=== PATIENT | male | born 1955 | race Caucasian/White ===

== ENCOUNTER 2019-02-07 10:59 | Outpatient (CLI) | payer BC, SELFPAY ==
--- NOTE | 2019-02-07 10:58 | DI.RAD_ITS ---
SYMPTOM/DIAGNOSIS: RT SHOULDER PAIN M25.511 RIGHT SHOULDER: 02/07 Five views were obtained. There are very prominent hypertrophic changes at the acromioclavicular joint. Glenohumeral articulation appears intact. No other significant bony abnormalities seen. No soft tissue calcifications seen. CONCLUSION: Hypertrophic DJD of the A-C joint.
[2019-02-08 09:18] LABS: PSA, Screening 4.7 ng/ml (0-4.5)
== END 2019-02-07 11:19 ==
PROVIDERS: PCP Family Medicine; Visit Provider Family Medicine
DX: M25.511 Pain in right shoulder (principal); Z00.00 Encounter for general adult medical examination without abnormal findings; Z12.5 Encounter for screening for malignant neoplasm of prostate; M19.011 Primary osteoarthritis, right shoulder
CPT/HCPCS: 36415; 84153; 73030

== ENCOUNTER 2019-11-04 13:41 | Outpatient (CLI) | payer BC, SELFPAY ==
[2019-11-05 09:45] LABS: PSA, Screening 3.2 ng/mL (0.0-4.5)
== END 2019-11-04 14:01 ==
PROVIDERS: PCP Family Medicine; Visit Provider Nurse Practitioner Gerontology
DX: Z12.5 Encounter for screening for malignant neoplasm of prostate (principal); Z80.42 Family history of malignant neoplasm of prostate
CPT/HCPCS: 36415; 84153

== ENCOUNTER 2020-11-30 10:11 | Outpatient (REF) | payer BC, SELFPAY ==
[2020-11-30 17:04] LABS: PSA, Screening 3.7 ng/mL (0.0-4.5)
== END 2020-11-30 10:12 | disposition home or self-care (01) ==
LOC: NCHCN 10:11
PROVIDERS: PCP Family Medicine; Visit Provider Nurse Practitioner Gerontology
DX: Z12.5 Encounter for screening for malignant neoplasm of prostate (principal); Z80.42 Family history of malignant neoplasm of prostate
CPT/HCPCS: 84153

== ENCOUNTER 2021-08-16 02:35 | Outpatient (CLI) | payer BC, SELFPAY ==
[2021-08-16 07:46] LABS: MCH 29.2 pg (27.0-33.0); MCHC 31.7 % (32.0-36.0); MCV 92.1 fL (80-95); MPV 8.7 fL (8.0-11.0); Platelet Count 196 10^3/uL (130-400); RBC 4.45 10^6/uL (4.36-5.78); RDW 12.4 % (11.8-14.1); RDW-SD 42.1 fL; WBC 4.83 10^3/uL (4.4-10.8)
[2021-08-16 09:06] LABS: ALT 32 U/L (16-63); AST 28 U/L (15-37); Albumin 3.7 g/dL (3.4-5.0); Alkaline Phosphatase 50 U/L (46-116); Anion Gap 5.9 mmol/L (3-11); BUN 16 mg/dL (7-18); Bilirubin, Total 0.3 mg/dL (0.2-1.0); CO2 32.1 mmol/L (21.0-32.0); CREATININE 0.7 mg/dL (0.70-1.30); Calcium 8.8 mg/dL (8.5-10.1); Chloride 108 mmol/L (98-107); Glucose 104 mg/dL (74-106); Potassium 4.1 mmol/L (3.5-5.1); Sodium 146 mmol/L (136-145); TSH (W/Ref FT4) 1.29 uIU/mL (0.36-3.74); Total Protein 6.7 g/dL (6.4-8.2)
[2021-08-16 14:36] LABS: Iron 49 ug/dL (65-175); Total Iron Binding Capacity 326 ug/dL (250-450); Transferrin Sat 15 % (20-55)
[2021-08-16 15:04] LABS: Ferritin 20 ng/mL (26-388); Vitamin B12 570 pg/mL (193-986)
[2021-08-16 15:05] LABS: Folate > 20.0 ng/mL (8.6-20.0)
[2021-08-16 18:33] LABS: PSA, Diagnostic 4.6 ng/mL (0.0-4.5)
== END 2021-08-16 02:36 | disposition home or self-care (01) ==
LOC: LBO 02:35
PROVIDERS: Surgery; PCP Family Medicine; Visit Provider Family Medicine
DX: D64.9 Anemia, unspecified (principal); R63.4 Abnormal weight loss; R97.20 Elevated prostate specific antigen [PSA]; D12.6 Benign neoplasm of colon, unspecified; G47.30 Sleep apnea, unspecified; K57.30 Diverticulosis of large intestine without perforation or abscess without bleeding; R10.9 Unspecified abdominal pain
CPT/HCPCS: 36415; 80053; 85027; 82607; 82728; 82746; 83540; 83550; 84153; 84443

== ENCOUNTER 2021-08-17 11:34 | Outpatient (CLI) | payer BC, SELFPAY ==
--- NOTE | 2021-08-17 14:15 | RT.EKG_ITS ---
APPROVED REPORT Exam: Resting ECG Reason for Exam: preOp Patient Location: O HR:84 bpm ECG Measurements Heart Rate 84 AXIS VA 169 P 73 QRSd 115 QRS 43 QT 350 T 63 QTc 414 Conclusion Sinus rhythm...normal P axis, V-rate 60- 99 Incomplete right bundle branch block...QRSd >112, terminal axis(90,270)
== END 2021-08-17 11:35 | disposition home or self-care (01) ==
LOC: RT 11:35
PROVIDERS: PCP Family Medicine; Visit Provider Surgery
DX: Z87.891 Personal history of nicotine dependence (principal); R63.4 Abnormal weight loss; Z82.49 Family history of ischemic heart disease and other diseases of the circulatory system; Z01.810 Encounter for preprocedural cardiovascular examination; I45.19 Other right bundle-branch block; D64.9 Anemia, unspecified; Z86.010 Personal history of colon polyps; G47.33 Obstructive sleep apnea (adult) (pediatric); K57.30 Diverticulosis of large intestine without perforation or abscess without bleeding; R10.9 Unspecified abdominal pain; R97.20 Elevated prostate specific antigen [PSA]
CPT/HCPCS: 93005; 93010

== ENCOUNTER 2021-08-20 01:21 | Outpatient (CLI) | payer BC, SELFPAY ==
--- NOTE | 2021-08-20 08:21 | DI.RAD_ITS ---
Exam(s) XR CHEST 2V PA LATERAL EXAM: XR CHEST 2V PA LATERAL CLINICAL HISTORY: wtloss/hx of smoking,R53.4,Z87.891 TECHNIQUE: 2D digital imaging was performed of the chest. Three images were obtained. PA and later al views were obtained. COMPARISON: CR,RF BARIUM SWALLOW W PA LAT CXR from 01/02/2012 CR XR shoulder RT complete 2+V from 02/07/2019 FINDINGS: MEDIASTINUM: Normal. HEART: Normal. PULMONARY VASCULATURE: Normal. LUNGS: Clear. PLEURAL SPACE: No pleural effusion or pneumothorax. BONE:Within normal limits for the patient's age. There is a pectus excavatum deformity. OTHER FINDINGS:Normal. IMPRESSION: No acute pulmonary findings. DATA REPOSITORY: RADIATION DOSE DELIVERED:
== END 2021-08-20 01:41 ==
PROVIDERS: PCP Family Medicine; Visit Provider Surgery
DX: R63.4 Abnormal weight loss (principal); Z87.891 Personal history of nicotine dependence
CPT/HCPCS: 71046

== ENCOUNTER 2021-09-03 01:57 | Outpatient (CLI) | payer BC, SELFPAY ==
[2021-09-03 07:43] LABS: HCT 41.6 % (40.0-50.0); HGB 13.3 g/dL (13.5-17.5); MCH 29.5 pg (27.0-33.0); MCV 92.2 fL (80-95); MPV 8.7 fL (8.0-11.0); Platelet Count 192 10^3/uL (130-400); RBC 4.51 10^6/uL (4.36-5.78); RDW 12.2 % (11.8-14.1); RDW-SD 41.5 fL; WBC 5.34 10^3/uL (4.4-10.8)
[2021-09-03 09:06] LABS: Anion Gap 5.6 mmol/L (3-11); BUN 18 mg/dL (7-18); CO2 31.4 mmol/L (21.0-32.0); CREATININE 0.8 mg/dL (0.70-1.30); Calcium 8.6 mg/dL (8.5-10.1); Chloride 105 mmol/L (98-107); Ferritin 24 ng/mL (26-388); Glucose 99 mg/dL (74-106); Potassium 3.8 mmol/L (3.5-5.1); Sodium 142 mmol/L (136-145)
[2021-09-03 09:12] LABS: Iron 111 ug/dL (65-175)
[2021-09-08 09:45] LABS: IgA 310 mg/dL (85-499); Interpretation (See Note); Tissue Transglutaminase IgA <1.2 U/mL (<4.0)
== END 2021-09-03 01:58 | disposition home or self-care (01) ==
LOC: LBO 01:58
PROVIDERS: PCP Family Medicine; Visit Provider Family Medicine
DX: D64.9 Anemia, unspecified (principal); R63.4 Abnormal weight loss; R97.20 Elevated prostate specific antigen [PSA]
CPT/HCPCS: 36415; 80048; 82784; 83516; 85027; 82728; 83540; 84154

== ENCOUNTER 2021-09-20 13:30 | Outpatient (REF) | payer BC, SELFPAY ==
--- NOTE | 2021-09-20 10:00 | SKI_PTH ---
PATIENT: Randy Cuevas LOC: N U#:[id number] AGE/SX: 66/M ROOM: RE09/20/[address]: Mariella Chandler MD, DC : 1955 BED: DIS: 09/20/2021 SPEC #: [id number] RECD: 09/20/21 18:07 STATUS: TAMIKO REStephanie #: [id number] [place]: 09/20/21 10:[address]: Mariella Chandler DEPT: Surgical Specimen RECD BY: Lacey Nichole Tissues: 1 - SKIN BIOPSY(SHAVE/PUNCH) Procedures: IMMUNOPEROXIDASE STAIN SKIN LEVEL 4 Comments: [id number]
== END 2021-09-20 13:31 | disposition home or self-care (01) ==
LOC: LBN 13:30
PROVIDERS: PCP Family Medicine; Visit Provider Family Medicine
DX: C43.59 Malignant melanoma of other part of trunk (principal)
CPT/HCPCS: 88305; 88361

== ENCOUNTER 2021-10-13 01:19 | Outpatient (CLI) | payer BC, SELFPAY ==
[2021-10-13 12:05] LABS: Source Nasal/Nares
[2021-10-13 14:31] LABS: COVID-19 PCR Negative (Negative)
== END 2021-10-13 01:20 | disposition home or self-care (01) ==
LOC: LBO 01:19
PROVIDERS: PCP Family Medicine; Visit Provider Surgery
DX: Z20.822 Contact with and (suspected) exposure to COVID-19 (principal)
CPT/HCPCS: 87635

== ENCOUNTER 2021-10-15 12:21 | Day surgery (SDC) | payer BC, SELFPAY ==
--- NOTE | 2021-10-14 09:47 | HPE_ITS ---
Date of service: 10/14/21 Time of Service: 09:47 Assessment and Plan Assessment and plan (1) Elevated PSA: Status: Acute (2) Family history of coronary artery disease: Status: Acute (3) Former smoker: Status: Acute (4) Weight loss: Status: Acute (5) Diverticulosis of colon without diverticulitis: Status: Acute (6) Sleep apnea: Status: Acute (7) Tubular adenoma of colon: Status: Acute Assessment and plan: Plan:Colonscopy w/ MAC The?patient will be scheduled by my office. ? The pt understands that they need to do a bowel prep and the importance of hydration during this.? The patient understands there is a theoretical risk of renal failure.? For healthy patients we use Gatorade/Miralax Prep.? ?For anyone with renal concerns- GoLytely will be used. ? Plavix and coumadin will need to be held except in unusual circumstances. ? Patients in A. Fib do not need to be bridged with Lovenox or on CVA prophylaxis.? A baby ASA can be continued but full dose ASA needs to be stopped for 10 days prior to the procedure. ? A complete H & P is required within 30 days of the procedure.? GETA w/out airway is used for anesthesia, w/ associated risks. Colonoscopy does not require antibiotics prophylaxis, except as noted below. ?Informed consent is obtained for the procedural (explained in simple layman's terms that?the pt and/or family could understand) explaining risks vs benefits and alternatives to the procedure and consequences if we do not do the procedure and need/rational for the procedure. Risks include but are not limited to: bleeding, infection, perforation of colon.? This would necessitate emergency surgery to repair the damage w/ possible ostomy; and other associated complications w/ the required surgery. ? Also complications of anesthesia including aspiration, OH/CVA/.I discussed with the?patient would they could expect during the procedure, post procedure and recovery time and risks (8) Sleep apnea: (9) Peripheral neuropathy: (10) Hiatal hernia: Status: Chronic (11) Anemia: Status: Acute (12) Heme + stool: Status: Acute History of Present Illness Narrative: pt notes he has been feeling tired for the past 8wks. ? desnies CP/SOB. ? See labs in [facility]. quit smoking yrs ago. 1ppd for 10 yrs ? + wt loss. ? pt states he is eating ok.? 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 He denies any abdominal pain.? He denies any pain or difficulty swallowing.? He denies any reflux signs or symptoms.? He states he has been eating normally. mother- pancreatic dad- prostate brother- skin younger brother- prostate he does not use CPAP no problems w/ aesthesis in the past.? repeat hemoccult cards were negative. He is still anemic. Pt seen at the request of PCP regarding rectal bleeding/anemia.? Denies problems with constipation, diarrhea.? No pain or difficulty with bowel movements. ? There is no family history of any colon cancer.? Pt has not had any weight loss.? Their appetite is good.? No heart, lung, or kidney problems. No heartburn or indigestion. No prior colo-rectal surgery.? No prior prostatesurgery. ? CE 03/29 After informed consent was obtained, the patient was taken to the endoscopy suite, placed in the left decubitus position. ? Monitors were applied and a time-out was done.? The patient was then given Versed and fentanyl in increments and once asleep and comfortable, the scope was introduced and retroflexed, no internal hemorrhoids were noted. The scope was straightened and advanced to the cecum without difficulty.? The terminal ileum and appendiceal orifice were identified. ? The scope was then slowly retracted back into the ascending colon where a small benign appearing polyp was identified and removed with forceps. The scope was then slowly retracted all the way back into the rectum. The patient also had some mild right-sided diverticulosis. The scope was removed and the patient was woken up and taken back to [facility] in stable condition. He did complete the bowel prep. It is resulted as []. He is not having any abdominal pain or nausea at this time. He currently is not having any chest pain or shortness of breath. He has no productive cough or fevers. He was Covid negative. He has had no changes in his health status or medication. All questions are answered to his satisfaction he is stable for the proposed procedure today. He does have a history of diverticulosis and adenoma of the colon Review of Systems All systems reviewed & are unremarkable except as noted in HPI and below PFSH All Active Problems (Updated 10/15/21 @ 12:50 by Mimi Meeks DO) Heme + stool (Acute) Hiatal hernia (Chronic) Elevated PSA (Acute) Family history of coronary artery disease (Acute) Former smoker (Acute) Weight loss (Acute) Chronic right shoulder pain (Acute) Left shoulder pain (Acute) Shoulder pain (Acute) Annual physical exam (Acute) Abdominal pain (Acute) Acute meniscal tear, lateral (Acute 01/26/09) Anemia (Acute 06/25/12) Carpal tunnel syndrome on both sides (Acute 11/20/14) MILD Cervical spine arthritis (Acute 10/13/14) severe by MRI. No myelopathy Closed fracture of left lower extremity with routine healing (Acute 06/08/15) Diverticulosis of colon without diverticulitis (Acute 03/13/06) 03/19 COLONOSCOPY: TRANSVERSE DIVERTICULI Hiatal hernia Herpes simplex (Acute) Insomnia (Acute) Lumbosacral spondylosis (Acute) LOWER BACK PAIN FOR YEARS; X-RAYS: B/L L2 SPONDYOLYSIS W/ RETROLISTHESIS OF L2 ON L3, DDD L2-3, L4-5, L5-S1 & DJD FACETS. Magnidottir recommended against surgery Peripheral neuropathy (Acute 09/30/14) Rosacea (Acute) Sleep apnea (Acute) positional/no CPAP Tubular adenoma (Acute) Weight loss (Acute 11/07/16) Tubular adenoma of colon (Acute 04/08/16) Medical History (Updated 10/15/21 @ 12:50 by Mimi Meeks DO) Acute meniscal tear, lateral Carpal tunnel syndrome on both sides Cervical spine arthritis Diverticulosis of colon without diverticulitis Elevated PSA Insomnia Lumbosacral spondylosis Peripheral neuropathy Rosacea Sleep apnea Surgical History Arthroplasty of knee (~11/2001) Colonoscopy - IV Sedation (04/04/16) Family History (Updated 02/11/20 @ 13:10 by Mariella Calderon) Mother , 75 Heart disease A-FIB Pancreatic cancer Father , 68 Prostate cancer Brother , 65 Heart disease a-fib Stroke Brother Skin cancer Brother No problems noted. Paternal Grandfather , 74 Heart disease Stroke Paternal Grandmother Cervical cancer Daughter Depression Social History (Updated 08/02/21 @ 14:23 by Aviva Marin-Lescault) Smoking/Tobacco Use Status: Former Tobacco Use tobacco type: cigarettes Quit Date: 08/14/86 Tobacco: How many years used: 10 Second Hand Exposure: Yes Smoking risk assessment performed?: Yes Alcohol Intake: former Drug use: Socially Substance use type: marijuana Caregiver/Support person: No Household members: spouse Housing: house Communication Needs: Corrective Lenses Do you need help understanding health information?: Rarely Pets and animals: Yes Pets and animals: dog(s) Sexually active: No Do you think of yourself as: straight/heterosexual Current gender identity: male What is your relationship status?: How often do you talk on the phone with friends or family?: once per week How often do you get together with friends or relatives?: once per week How often do you attend holiness or spiritism services?: decline to answer Do you belong to any clubs or organized social groups?: no Panel score (0-1 are the most socially isolated patients): 1 Duration: 45-60 minutes/day Frequency: 5-6 times per week Carla/Zoroastrianism: Voodoo Special carla needs: No Seatbelt use: always Helmet use: Yes Drive intox or ride w/intox driver retraining instructor: No Do you feel safe at home: Yes Do you feel safe in your relationship?: Yes Meds Allergies and Home Medications Allergies Allergy/AdvReac Type Severity Reaction Status Date / Time No Known Allergies Allergy Unverified 10/15/21 12:27 Home Medications Medication Instructions Recorded Confirmed Type jackson constantino 160 mg capsule 160 mg PO DAILY cap 11/11/19 10/15/21 History bisacodyl 5 mg tablet,delayed 5 mg PO ONCE #4 tab 08/16/21 10/15/21 Rx release (Dulcolax (bisacodyl)) methylsulfonylmethane 1,000 mg 1,000 mg PO DAILY cap 08/16/21 10/15/21 History capsule (MSM) multivitamin 1 tab PO DAILY 08/16/21 10/15/21 History polyethylene glycol 3350 17 238 g PO ONCE #238 g 08/16/21 10/15/21 Rx gram/dose oral powder ferrous sulfate 325 mg (65 mg 325 mg PO DAILY 08/30/21 10/15/21 History iron) tablet magnesium oxide 250 mg PO DAILY 08/30/21 10/15/21 History vitamin E 400 unit capsule 400 unit PO DAILY 08/30/21 10/15/21 History Exam Narrative Exam Narrative: PHYSICAL EXAM GENERAL APPEARANCE: Alert, healthy appearance, oriented, in no acute distress HEAD, EYES, EARS, NECK, THROAT: Head is normocephalic, pupils equal, round, reactive to light and accommodation, ocular movement intact, sclera clear and no jaundice. ?Dentition intact. No sore throat.? No jaw pain. NECK: Supple, Trachea midline. No JVD. LUNGS: normal respiration/nl chest excursion. ?Clear to auscultation B/l no R/R/W ?HEART: Regular rate and rhythm, EXTREMITY: No edema or cyanosis? no leg pain, redness, swelling.? changes consistent w/ OA ABDOMEN: non tender to palpation, no masses or distention, no hernias. Normal bowel sounds NEURO: no focal neuro deficits. ?
--- NOTE | 2021-10-15 06:37 | W.ANESPRE ---
General Info Date of Service Date Performed: 10/15/21 Height: 6 ft Weight: 70.08 kg Body Mass Index (BMI): 20.9 Surgical Procedure: Operation Date: 10/15/21 12:05 Proposed Procedure Side Surgeon tree Meeks, Meds Allergies and Home Medications Allergies Allergy/AdvReac Type Severity Reaction Status Date / Time No Known Allergies Allergy Unverified 10/15/21 12:27 Home Medication Medication Instructions Recorded saw palmetto 160 mg capsule 160 mg PO DAILY cap 11/11/19 bisacodyl 5 mg tablet,delayed 5 mg PO ONCE #4 tab 08/16/21 release (Dulcolax (bisacodyl)) methylsulfonylmethane 1,000 mg 1,000 mg PO DAILY cap 08/16/21 capsule (MSM) multivitamin 1 tab PO DAILY 08/16/21 polyethylene glycol 3350 17 238 g PO ONCE #238 g 08/16/21 gram/dose oral powder ferrous sulfate 325 mg (65 mg 325 mg PO DAILY 08/30/21 iron) tablet magnesium oxide 250 mg PO DAILY 08/30/21 vitamin E 400 unit capsule 400 unit PO DAILY 08/30/21 Current Visit Medications: Current Medications Generic Name Dose Route Start Last Admin Trade Name Freq PRN Reason Stop Dose Admin Hyoscyamine Sulfate 0.125 mg 10/14/21 09:52 Hyoscyamine 0.125 Mg Sl/Oral/Chew SL DIRECTED PRN Ringer's Solution 1,000 mls @ 80 mls/hr 10/15/21 06:00 IV 11/11/21 23:59 INFUSION [facility] IV Miscellaneous Supplies 1 each 10/15/21 06:00 Iv Access IV 11/11/21 23:59 DIRECTED [facility] Ondansetron HCl 4 mg 10/14/21 09:52 Ondansetron 4 Mg/2 Ml Vial IVP Q4H PRN PRN Nausea / Vomiting Sodium Chloride 0 ml 10/15/21 06:00 Normal Saline Flush 10 Ml Syr IV 11/11/21 23:59 PRN PRN Sodium Chloride 0 ml 10/15/21 06:00 Normal Saline 10 Ml Vial IJ 11/11/21 23:59 DIRECTED PRN Sterile Water 0 ml 10/15/21 06:00 Water,Injection,Sterile 10 Ml Vial IJ 11/11/21 23:59 DIRECTED PRN PFSH Active Problems Active Problems: Problem Status Onset Code Hiatal hernia K44.9 Elevated PSA R97.20 Family history of coronary artery disease Z82.49 Former smoker Z87.891 Weight loss R63.4 Chronic right shoulder pain M25.511, G89.29 Left shoulder pain M25.512 Shoulder pain M25.519 Annual physical exam Z00.00 Abdominal pain R10.9 Acute meniscal tear, lateral 01/26/09 S83.289A Anemia 06/25/12 D64.9 Carpal tunnel syndrome on both sides 11/20/14 G56.03 Cervical spine arthritis 10/13/14 M47.812 Closed fracture of left lower extremity with routine healing 06/08/15 S82.92XD Diverticulosis of colon without diverticulitis 03/13/06 K57.30 Herpes simplex B00.9 Insomnia G47.00 Lumbosacral spondylosis M47.817 Peripheral neuropathy 09/30/14 G62.9 Rosacea L71.9 Sleep apnea G47.30 Tubular adenoma D36.9 Weight loss 11/07/16 R63.4 Tubular adenoma of colon 04/08/16 D12.6 Medical History Medical History (Updated 10/15/21 @ 12:50 by Mimi Meeks DO) Acute meniscal tear, lateral Carpal tunnel syndrome on both sides Cervical spine arthritis Diverticulosis of colon without diverticulitis Elevated PSA Insomnia Lumbosacral spondylosis Peripheral neuropathy Rosacea Sleep apnea Surgical History Surgical History Arthroplasty of knee (~11/2001) Colonoscopy - IV Sedation (04/04/16) Tobacco Smoking/Tobacco Use Status: Former Tobacco Use Passive smoking exposure: Yes Second hand exposure: Yes Alcohol Alcohol Intake: former Substance Use Substance use: Socially Substance use type: marijuana Vital Signs and Lab Results Vital Signs Most Recent Vital Signs in EMR: Temp Pulse Resp BP Pulse Ox 36.3 C L 88 18 132/91 H 98 10/15/21 12:35 10/15/21 12:35 10/15/21 12:35 10/15/21 12:35 10/15/21 12:35 Lab Results Blood Type / Crossmatch: No Data to Display Complete Blood Count: No Data to Display Complete Metabolic Panel: No Data to Display Liver Function Panel: No Data to Display Coagulation Panel: No Data to Display Cardiac Panel: No Data to Display Arterial Blood Gas: No Data to Display Venous Blood Gas: No Data to Display Pancreas Panel: No Data to Display Thyroid Panel: No Data to Display Infectious Disease: Coronavirus (COVID-19)(PCR) Negative (Negative) 10/13/21 10:00 10/13/21 Coronavirus 2019 Source Nasal/Nares 10/13/21 10:00 10/13/21 Blood Cultures: No Data to Display Toxicology Panel: No Data to Display Imaging and Studies Imaging and Studies Study information below may be from another EMR and interpreted by another provider. Please see original notes in EMR for more complete details. EKG Summary: 09/04: sinus, iRBBB. Stress Test Summary: 2011: negative for ischemia. Anesthesia Assessment and Plan Anesthesia History Personal History: No History of Anesthesia Complications Family History: No Family History of Anesthesia Complications Exercise Tolerance Exercise Tolerance: Metabolic Equivalents>4 Cardiac & Pulmonary Exam Cardiac Exam: Normal S1/S2 Heart Sounds Pulmonary Exam: Clear Bilateral Breath Sounds Implantable Cardiac Device Does patient have a Pacemaker or an ICD?: No Airway Exam Known Difficult Airway: No Mallampati Class: 2 Mouth Opening: Normal (> 3cm) Thyromental Distance: Greater than 3 cm Neck Range of Motion: Full ROM Neck Circumference: Normal Teeth Condition: Normal Dentition ASA Classification ASA Score: ASA 2 Emergency Case?: No NPO Status NPO Status: NPO Clears >2 hours, Solids >8 hours Anesthesia Plan Resuscitation Status: Full Code Anesthesia Technique: General Anesthesia Airway Planned: Natural Airway Monitors Used: Standard Monitors Preoperative Comments:: 66 yo male with rectal bleeding and anemia for colonoscopy. Sig PMHx: no major.
[2021-10-15 12:35] VITALS: BP 132/91; PULSE 88; RESP 18; TEMP 36.3; O2SAT 98
[2021-10-15 12:49] VITALS: BMI 20.9
[2021-10-15] MEDS: Lactated Ringers 1,000 ML 80 ML IV (12:53)
[2021-10-15 13:43] VITALS: BP 123/74; PULSE 68; RESP 16; TEMP 36.2; O2SAT 99
[2021-10-15 14:13] VITALS: BP 135/89; PULSE 68; RESP 18; TEMP 36.2; O2SAT 99
--- NOTE | 2021-10-15 14:14 | COLE_ITS ---
Colonoscopy Report Date of procedure: 10/15/21 Pre-op diagnosis general: hem+/anemia Post-op diagnosis procedure note: other (roach diverticula ) Surgeon: Mimi Meeks Anesthesia Type: General LMA/ETT Estimated blood loss (mL): 0 Pathology: none sent Complications: None Disposition: same day Prep: Miralax/Dulcolax Retraction Time: 8 Procedure Description: After informed consent was obtained the patient was taken to the procedure room and placed in a left decubitous position. Monitors were applied and a time out was done. The patients name, date of , procedure, allergies to medications and metal in their body was reviewed. The patient was then sedated. Once s edated and comfortable a rectal exam was done. External exam was normal. Internal exam revealed a normal sphincter tone and no palpable masses. The scope was then introduced and retrofelexed. No internal hemorrhoids were identified. The scope was then advanced to the cecum w/out difficulty. The TI and appendiceal orifice were identified. The prep was BBPS 2 in all segments (6). The scope was then slowly retracted over 8 minutes back into the rectum. There are no polyps or AVMs visualized today. He does have a few small scattered diverticula throughout the entire colon. There is no signs of active bleeding or infection today. the scope was removed and the patient was woken up and taken back to Same day surgery in stable condition. The patient tolerated the procedure well and there were no immediate complications. Follow up: The patient should follow up in 7years unless they develop changes in bowel habits or other new gastrointestinal complaints.
--- NOTE | 2021-10-15 14:15 | PDOC.DSDIS_ITS ---
Discharge Plan Disposition Patient Disposition: HOME Condition: Good Discharge Details Reason For Visit: colon scope Attending Provider: Mimi Meeks Primary Care Provider: Mariella Chandler Home Meds and New Rx's Prescriptions: Continued ferrous sulfate 325 mg (65 mg iron) tablet 325 mg PO DAILY 0RF magnesium oxide 250 mg magnesium tablet 250 mg PO DAILY 0RF vitamin E 400 unit capsule 400 unit PO DAILY 0RF saw palmetto 160 mg capsule 160 mg PO DAILY 0RF Rx Instructions: give with meal/snack multivitamin Tablet 1 tab PO DAILY 0RF MSM 1,000 mg capsule 1,000 mg PO DAILY 0RF Discontinued polyethylene glycol 3350 17 gram/dose powder 238 g PO ONCE Qty: 238 0RF Rx Instructions: take per colonoscopy instructions bisacodyl [Dulcolax (bisacodyl)] 5 mg tablet,delayed release (DR/EC) 5 mg PO ONCE Qty: 4 0RF Rx Instructions: take per colonoscopy instructions Discharge Instructions Additional Instructions: DSU Colonoscopy Post- Op Instructions Instructions for Everyone who is given Anesthesia: For your safety, please do the following for the next twenty-four (24) hours: *Do Not operate a motor vehicle (car, truck, motorcycle, etc.) *Do Not drink alcoholic beverages or use any recreational drugs for the first 24 hours or while taking pain medications. The medications in your body may have a reaction that can be dangerous. *Do Not make any important decisions or sign any important papers. Findings: divertiucla throughout the entire colon Follow up: W/ Dr. Bearden as previously scheduled 1. No lifting over 20 pounds or strenuous activity for the first 24 hours after your procedure. After 24 hours there are no restrictions on your activity but you may feel fatigued for a few days. 2. After you arrive home you may have a light meal and return to your normal diet as you can tolerate it without feeling sick to your stomach. 3. You may have a bloated, gaseous feeling in your belly (abdomen) after a colonoscopy. Passing gas and belching will help. Walking or lying down on your left side with your knees flexed may relieve the discomfort. Call the office at [phone] (Office) or [phone] (Hospital) right away if you notice any of the following: a.Vomiting of blood or ?coffee ground stools?. b.Rectal bleeding 1Tbsp, blood clots or continuous bleeding. c.Severe belly (abdominal) pain. d.A hard distended belly (abdomen) and an inability to pass gas. 4. Please don?t expect to have a normal BM (bowel movement) for 2-3 days after your procedure. 5. If there are questions regarding the findings of your procedure, please contact your doctor 6. If you are unable to contact your doctor with a problem, contact the hospital at [phone]. 7. Continue all your regular medications unless directed otherwise. I understand the above instructions and have no questions. Signature of Patient or Adult Escort Name of Responsible Adult Escort Signature of Nurse Date/Time Activity:: see above Diet:: see above Discharge Orders Discharge Orders: Discharge Order (Routine); Ordered 10/14/21 Ordered By: Mimi Meeks DS: Diagnosis Discharge Diagnosis (1) Elevated PSA: Status: Acute (2) Family history of coronary artery disease: Status: Acute (3) Former smoker: Status: Acute (4) Weight loss: Status: Acute (5) Diverticulosis of colon without diverticulitis: Status: Acute (6) Sleep apnea: Status: Acute (7) Tubular adenoma of colon: Status: Acute (8) Sleep apnea: (9) Peripheral neuropathy: (10) Hiatal hernia: Status: Chronic (11) Anemia: Status: Acute (12) Heme + stool: Status: Acute
--- NOTE | 2021-10-15 15:05 | W.ANESPOSTOP ---
Postoperative Evaluation Date, Time and Location Date Performed: 10/15/21 Time Performed: 15:05 Patient Location: Day Surgery Unit Vital Signs Most Recent Imported Vital Signs: Most Recent Vital Signs Temp Pulse Resp BP Pulse Ox 36.2 C L 68 16 123/74 99 10/15/21 13:43 10/15/21 13:43 10/15/21 13:43 10/15/21 13:43 10/15/21 13:43 Pain Score Most Recent Pain Score: Most Recent Pain Score Pain Level 0 10/15/21 13:43 Assessment Mental Status: Awake (Alert & Oriented to Patient Baseline) Airway and Respiratory Function: Patent airway with normal (patient baseline) respiratory exam Cardiovascular Function: Hemodynamically Stable Hydration Status: Adequately Hydrated Nausea & Vomiting: No Nausea or Vomiting Pain: Pt. Denies Any Pain Peripheral Nerve Block: Patient did not receive a nerve block
== END 2021-10-15 15:31 | disposition home or self-care (01) ==
PROVIDERS: PCP Family Medicine; Visit Provider Surgery
PROC: 0DJD8ZZ Inspection of Lower Intestinal Tract, Via Natural or Artificial Opening Endoscopic (ICD-10-PCS; CPT 45378; principal; 2021-10-15 12:00)
DX: D64.9 Anemia, unspecified (principal); R19.5 Other fecal abnormalities; K57.30 Diverticulosis of large intestine without perforation or abscess without bleeding
CPT/HCPCS: 45378; J2001

== ENCOUNTER 2022-09-06 02:31 | Outpatient (CLI) | payer BC, SELFPAY ==
--- NOTE | 2022-09-06 06:45 | DI.MRI_ITS ---
Exam(s) MR BRAIN WO EXAM: MR BRAIN WO CLINICAL HISTORY: change in memory, bx proven melanoma,ALTERED MENTAL STATUS,C43.9,R41.82 TECHNIQUE: Multiplanar multisequence MRI of the brain was performed. COMPARISON: CR XR CHEST 2V PA LATERAL from 08/20/2021 FINDINGS: CEREBRAL PARENCHYMA: There is no evidence of intracranial hemorrhage, mass effect, or shift of midline structures. There are no extra-axial fluid collections. Some asymmetry in the lateral ventricles is noted which appear s developmental. There is no significant focal signal abnormality in the cerebellar hemispheres nor within the mary lou, m idbrain, and thalami. Small area of signal abnormality in lateral left basal ganglia, inferiorly. Possibly developmental s ub lenticular cyst. There is no surrounding edema. This is unlikely to represent a metastatic lesio n. This measures approximately 7 x 6 millimeters. There is no abnormal signal abnormality in the periventricular white matter. There is no significant focal signal abnormality evident on diffusion imaging to suggest acute ischem ic event. SWI: No microhemorrhages evident. PITUITARY GLAND: A few sella syndrome noted. The pituitary gland is confined to the floor of the pit uitary fossa. No pituitary mass. Cavernous sinuses unremarkable FLOW VOIDS: The expected flow void are noted. No evidence of obvious aneurysm nor obvious vascular ma lformation. PARANASAL SINUSES: The visualized paranasal sinuses appear unremarkable. No obvious finding ORBITS: No obvious findings. IMPRESSION: Findings as above but it doubtful for significant acute intracranial findings on this noninfused MRI scan. No obvious metastatic disease, realized limitations of a noninfused study for detecting metastatic le sions. Incidentally noted is empty sella syndrome and what is probably developmental sub lenticular cyst on the left side. DATA REPOSITORY:
== END 2022-09-06 02:51 ==
LOC: DI 02:32
PROVIDERS: PCP Family Medicine; Visit Provider Family Medicine
DX: R41.82 Altered mental status, unspecified (principal); E23.6 Other disorders of pituitary gland; C43.59 Malignant melanoma of other part of trunk
CPT/HCPCS: 70551

== ENCOUNTER 2022-10-02 07:42 | Emergency (ER) | payer OTHER, SELFPAY ==
[2022-10-02 07:49] VITALS: BP 152/88; PULSE 70; RESP 18; TEMP 36.4; O2SAT 100
--- NOTE | 2022-10-02 07:59 | W.ED.GENAD ---
Discharge Plan Disposition Patient Disposition: Home Discharge Details Clinical Impression: Acute pain of right shoulder Primary Care Provider: Mariella Chandler ED Provider: Francesco Peña Home Meds and New Rx's Prescriptions: No Action ferrous sulfate 325 mg (65 mg iron) tablet 325 mg PO DAILY magnesium oxide 250 mg magnesium tablet 250 mg PO DAILY vitamin E 400 unit capsule 400 unit PO DAILY Mushroom supplemnet PO multivitamin Tablet 1 tab PO DAILY Discharge Instructions Instructions: Shoulder Pain (ED) Additional Instructions: You were seen in the emergency department for your right shoulder pain. Your x-ray showed no obvious signs of any fractures. As we discussed, please take acetaminophen and ibuprofen as directed on the bottle for pain. Please call the orthopedic team for follow-up as you may or may not benefit from an MRI. As we discussed, if your hand becomes numb or if you lose circulation in your or develop any fevers please return to the emergency department Medical Decision Making This is a quite well-appearing normothermic and not tachycardic 67-year-old [id number] male with right shoulder pain 10 days status post injury with no obvious dislocation based on exam and low suspicion for fracture. Will obtain x-rays to assess for any acute osseous abnormalities and if this is negative advised orthopedics follow-up. Patient does have a history of malignant melanoma and though this does not typically lead to bony metastases pathological fracture remains a possibility. If the patient has continued pain an MRI might be a reasonable next step as an outpatient. He has no pain out of proportion to suggest necrotizing soft tissue infection. No erythema nor fluctuance to suggest cellulitis nor abscess respectively. He has not recently had a PICC line nor does he have a pacemaker so I am not concerned for upper extremity DVT. Right hand is warm well perfused making my suspicion exceedingly low for any vascular insult. No rash to shoulder to suggest zoster. He does have a phone number for the orthopedic team and if his plain films are negative will discharge with outpatient orthopedic follow-up. 9:10 AM Preliminary interpretation of right shoulder radiographs negative for any patient has orthopedic follow-up and will provide return indications including any erythema fevers or any upper extremity loss of sensation or skin changes. HPI General Date/Time Provider Initiated Documentation: 10/02/22 07:59. 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 As he was walking down some icy steps from a porch he lost his balance and fell bracing himself with his right arm as he attempted to break his fall. 3 years ago on his right side he had an overuse injury secondary to swimming. He was seen by orthopedics and diagnosed with arthritis and there was reportedly discussion concerning AC joint repair. He does note that he has a history of malignant melanoma to his back. He denies any recent fevers chills nausea vomiting chest pain or shortness of breath. Related Data Home Medications Medication Instructions Recorded Confirmed multivitamin 1 tab PO DAILY 08/16/21 10/02/22 ferrous sulfate 325 mg (65 mg 325 mg PO DAILY 08/30/21 10/02/22 iron) tablet magnesium oxide 250 mg PO DAILY 08/30/21 10/02/22 vitamin E 268 mg (400 unit) capsule 400 unit PO DAILY 08/30/21 10/02/22 Mushroom supplemnet PO 01/11/22 08/22/22 Allergies Allergy/AdvReac Type Severity Reaction Status Date / Time No Known Allergies Allergy Unverified 10/02/22 07:48 General Stated Complaint: Orthopedic MARY: 4 PFSH All Active Problems (Updated 10/02/22 @ 08:41 by Francesco Peña MD) Acute pain of right shoulder (Acute) Altered mental status (Acute) Malignant melanoma (Acute) declines conventional medical care; taking supplements; has capacity to make this decision Heme + stool (Acute) Hiatal hernia (Chronic) Elevated PSA (Acute) Family history of coronary artery disease (Acute) Former smoker (Acute) Weight loss (Acute) Chronic right shoulder pain (Acute) Left shoulder pain (Acute) Shoulder pain (Acute) Annual physical exam (Acute) Abdominal pain (Acute) Acute meniscal tear, lateral (Acute 01/26/09) Anemia (Acute 06/25/12) Carpal tunnel syndrome on both sides (Acute 11/20/14) MILD Cervical spine arthritis (Acute 10/13/14) severe by MRI. No myelopathy Closed fracture of left lower extremity with routine healing (Acute 06/08/15) Diverticulosis of colon without diverticulitis (Acute 03/13/06) 03/19 COLONOSCOPY: TRANSVERSE DIVERTICULI Hiatal hernia Herpes simplex (Acute) Insomnia (Acute) Lumbosacral spondylosis (Acute) LOWER BACK PAIN FOR YEARS; X-RAYS: B/L L2 SPONDYOLYSIS W/ RETROLISTHESIS OF L2 ON L3, DDD L2-3, L4-5, L5-S1 & DJD FACETS. Magnidottir recommended against surgery Peripheral neuropathy (Acute 09/30/14) Rosacea (Acute) Sleep apnea (Acute) positional/no CPAP Tubular adenoma (Acute) Weight loss (Acute 11/07/16) Tubular adenoma of colon (Acute 04/08/16) Medical History (Updated 10/02/22 @ 08:41 by Francesco Peña MD) Acute meniscal tear, lateral Carpal tunnel syndrome on both sides Cervical spine arthritis Diverticulosis of colon without diverticulitis Elevated PSA Insomnia Lumbosacral spondylosis Peripheral neuropathy Rosacea Sleep apnea Surgical History Arthroplasty of knee (~11/2001) Colonoscopy - IV Sedation (04/04/16) Family History (Updated 02/11/20 @ 13:10 by Mariella Calderon) Mother , 75 Heart disease A-FIB Pancreatic cancer Father , 68 Prostate cancer Brother , 65 Heart disease a-fib Stroke Brother Skin cancer Brother No problems noted. Paternal Grandfather , 74 Heart disease Stroke Paternal Grandmother Cervical cancer Daughter Depression Social History (Updated 08/24/22 @ 11:39 by Marissa Hammond) Smoking/Tobacco Use Status: Former Tobacco Use tobacco type: cigarettes Quit Date: 08/14/86 Tobacco: How many years used: 10 Second Hand Exposure: Yes Smoking risk assessment performed?: Yes Alcohol Intake: former Drug use: Daily Substance use type: marijuana Caregiver/Support person: No Household members: spouse Housing: house Communication Needs: None Do you need help understanding health information?: Rarely Pets and animals: Yes Pets and animals: dog(s) Sexually active: No Do you think of yourself as: straight/heterosexual Current gender identity: male What is your relationship status?: How often do you talk on the phone with friends or family?: once per week How often do you get together with friends or relatives?: once per week How often do you attend quaker or yarsani services?: decline to answer Do you belong to any clubs or organized social groups?: no Panel score (0-1 are the most socially isolated patients): 1 What type of physical activity do you participate in: walking, other Details: Rowing and yoga Duration: 45-60 minutes/day Frequency: 5-6 times per week Carla/Scientologist: No preference Special carla needs: No Seatbelt use: always Helmet use: Yes Helmet use: sometimes Drive intox or ride w/intox funeral car driver: No Do you feel safe at home: Yes Do you feel safe in your relationship?: Yes Exam Narrative Exam Narrative: General: Well-appearing in no acute distress speaking in complete sentences. Head: Normocephalic, atraumatic Ear, nose, mouth, throat: Grossly normal inspection. Normal voice, handling secretions normally. Neck: Trachea midline. Cardiovascular: Well-perfused distal extremities. Respiratory: Nonlabored respiration. Gastrointestinal: Nondistended abdomen. Musculoskeletal: Right upper extremity with no obvious deformities/nor rash. Patient is able to touch his right hand to his left shoulder. He is able to flex at the right shoulder to approximately 110 degrees and extend to approximately 5 degrees. He was able to abduct his right shoulder to approximately 100 degrees. He has tenderness to palpation on his right shoulder. He has no right parascapular tenderness nor right clavicular tenderness. He has no tenderness about his proximal humerus. He has no tenderness throughout his elbow. He is able to fully pronate and supinate his right hand. Radial, median, and ulnar nerves intact of the right hand to sensation and motor function. Cap refill less than 2 seconds in the right hand. 2+ right radial pulse. Provocative testing deferred based on the patient's discomfort. Skin: Normal for age and race, grossly normal temperature and turgor. No acute rash. Neurologic: Alert and appropriate, no apparent acute deficits. Psychiatric: Mood and manner are appropriate. Grooming and personal hygiene are appropriate. Course Vital Signs Vital signs: Vital Signs Temperature 36.4 C 10/02/22 07:49 Pulse 70 10/02/22 07:49 Respiratory Rate 18 10/02/22 07:49 Blood Pressure 152/88 H 10/02/22 07:49 Pulse Oximetry 100 10/02/22 07:49 Temperature 36.4 C 10/02/22 07:49 Temperature Source Oral 10/02/22 07:49 Pulse 70 10/02/22 07:49 Respiratory Rate 18 10/02/22 07:49 Respiratory Effort Normal, Non-Labored 10/02/22 07:46 Blood Pressure 152/88 H 10/02/22 07:49 Pulse Oximetry 100 10/02/22 07:49 Oxygen Delivery Method Room Air 10/02/22 07:49 Oxygen Flow Rate 0 10/02/22 07:49
--- NOTE | 2022-10-02 08:00 | DI.RAD_ITS ---
Exam(s) XR SHOULDER RT COMPLETE 2+V EXAM: XR SHOULDER RT COMPLETE 2+V CLINICAL HISTORY: Right shoulder pain. TECHNIQUE: 2D digital imaging was performed. Five views. COMPARISON: No exams were available for comparison FINDINGS: BONES: No acute fracture is present. No bony destructive lesion is seen. JOINTS: No dislocation present. Degenerative changes AC joint. SOFT TISSUE: Normal. IMPRESSION: Unremarkable radiographs of the right shoulder. DATA REPOSITORY: RADIATION DOSE DELIVERED:
--- NOTE | 2022-10-02 08:40 | DI.VRAD_ITS ---
PROCEDURE INFORMATION: Exam: XR Right Shoulder Exam date and time: 10/02/2022 8:19 AM Age: 67 years old Clinical indication: Injury or trauma; Fall; Sprain or strain; Shoulder; Right TECHNIQUE: Imaging protocol: Radiologic exam of the Right shoulder. Views: 2 or more views. COMPARISON: CR XR shoulder RT complete 2+V 02/07/2019 10:49 AM FINDINGS: Bones/joints: Advanced DJD of the right acromioclavicular joint. The glenohumeral joint is normal.No acute fracture or dislocation. Soft tissues: Normal. IMPRESSION: No acute abnormality. Dictated and Authenticated by: Scarlet Pineda MD. Ordering:DONNELL Maya MD
[2022-10-02 08:54] VITALS: PULSE 70; RESP 18; O2SAT 100
== END 2022-10-02 08:56 | disposition home or self-care (01) ==
PROVIDERS: Emergency Provider Emergency Medicine; PCP Family Medicine
DX: G89.11 Acute pain due to trauma (principal); M25.511 Pain in right shoulder; Z85.820 Personal history of malignant melanoma of skin; W19.XXXA Unspecified fall, initial encounter; Y93.01 Activity, walking, marching and hiking
CPT/HCPCS: 99283; 73030; 99281

== ENCOUNTER 2022-12-12 04:48 | Outpatient (CLI) | payer BC, SELFPAY ==
[2022-12-13 04:16] LABS: PSA, Screening 4.3 ng/mL (<=4.5)
== END 2022-12-12 04:49 | disposition home or self-care (01) ==
PROVIDERS: PCP Family Medicine; Visit Provider Nurse Practitioner Gerontology
DX: R97.20 Elevated prostate specific antigen [PSA] (principal)
CPT/HCPCS: 36415; 84153

== ENCOUNTER 2023-12-12 05:36 | Outpatient (CLI) | payer BC, SELFPAY ==
[2023-12-12 18:21] LABS: PSA, Screening 3.9 ng/mL (<=4.5)
== END 2023-12-12 05:37 | disposition home or self-care (01) ==
LOC: LBO 05:36
PROVIDERS: PCP Family Medicine; Visit Provider Nurse Practitioner Gerontology
DX: R97.20 Elevated prostate specific antigen [PSA] (principal); Z80.42 Family history of malignant neoplasm of prostate
CPT/HCPCS: 36415; 84153

== ENCOUNTER 2024-06-10 09:41 | Outpatient (CLI) | payer BC, SELFPAY ==
[2024-06-10 12:29] LABS: Abs Immature Grans 0.01 10^3/uL (0.0-0.06); Absolute Basophil Count 0.08 10^3/uL (0.0-0.2); Absolute Eosinophil Count 0.12 10^3/uL (0.0-0.7); Absolute Lymphocyte Count 1.06 10^3/uL (1.2-3.4); Absolute Monocyte Count 0.42 10^3/uL (0.1-0.8); Absolute Neutrophil Count 2.61 10^3/uL (1.2-6.7); Basophils % 1.9 %; Eosinophils % 2.8 %; HCT 42.7 % (40.0-50.0); HGB 14.1 g/dL (13.5-17.5); Immature Grans % 0.2 %; Lymphocytes % 24.7 %; MCH 29.4 pg (27.0-33.0); MCV 89 fL (80-95); MPV 9.6 fL (8.0-11.0); Monocytes % 9.8 %; Neutrophils % 60.6 %; Platelet Count 224 10^3/uL (130-400); RDW 12.4 % (11.8-14.1); RDW-SD 40.5 fL
[2024-06-10 12:54] LABS: ALT 23 U/L (16-63); AST 30 U/L (15-37); Albumin 3.6 g/dL (3.4-5.0); Alkaline Phosphatase 62 U/L (46-116); Anion Gap 5.3 mmol/L (3-11); BUN 14 mg/dL (7-18); Bilirubin, Total 0.39 mg/dL (0.2-1.0); CO2 30.7 mmol/L (21.0-32.0); CREATININE 0.8 mg/dL (0.70-1.30); Calcium 9.3 mg/dL (8.5-10.1); Chloride 109 mmol/L (98-107); Glucose 100 mg/dL (74-106); LDH 280 U/L (85-227); Potassium 4.2 mmol/L (3.5-5.1); Sodium 145 mmol/L (136-145); TSH (W/Ref FT4) 1.22 uIU/mL (0.36-3.74); Total Protein 7.2 g/dL (6.4-8.2)
== END 2024-06-10 09:42 | disposition home or self-care (01) ==
LOC: LOS 09:41
PROVIDERS: PCP Family Medicine; Referring Provider Family Medicine; Visit Provider Family Medicine
DX: I10 Essential (primary) hypertension (principal); R63.4 Abnormal weight loss; C43.9 Malignant melanoma of skin, unspecified; Z87.891 Personal history of nicotine dependence; E03.9 Hypothyroidism, unspecified; R59.0 Localized enlarged lymph nodes
CPT/HCPCS: 36415; 80053; 83615; 84443; 85025

== ENCOUNTER 2024-12-10 00:25 | Outpatient (CLI) | payer BC, SELFPAY ==
[2024-12-10 18:30] LABS: PSA, Diagnostic 3.3 ng/mL (<=4.5)
== END 2024-12-10 00:26 | disposition home or self-care (01) ==
PROVIDERS: PCP Family Medicine; Visit Provider Nurse Practitioner Gerontology
DX: R97.20 Elevated prostate specific antigen [PSA] (principal)
CPT/HCPCS: 36415; 84153

== ENCOUNTER 2024-12-30 04:01 | Outpatient (CLI) | payer BC, SELFPAY ==
[2024-12-30 12:53] LABS: Abs Immature Grans 0.02 10^3/uL (0.0-0.06); Absolute Basophil Count 0.12 10^3/uL (0.0-0.2); Absolute Eosinophil Count 0.13 10^3/uL (0.0-0.7); Absolute Lymphocyte Count 1.16 10^3/uL (1.2-3.4); Absolute Monocyte Count 0.67 10^3/uL (0.1-0.8); Absolute Neutrophil Count 4.07 10^3/uL (1.2-6.7); Basophils % 1.9 %; Eosinophils % 2.1 %; HCT 39.7 % (40.0-50.0); HGB 12.8 g/dL (13.5-17.5); Immature Grans % 0.3 %; Lymphocytes % 18.8 %; MCH 28.8 pg (27.0-33.0); MCHC 32.2 % (32.0-36.0); MCV 89 fL (80-95); MPV 9.7 fL (8.0-11.0); Monocytes % 10.9 %; Platelet Count 210 10^3/uL (130-400); RBC 4.45 10^6/uL (4.36-5.78); RDW 12.8 % (11.8-14.1); WBC 6.17 10^3/uL (4.4-10.8)
[2024-12-30 13:37] LABS: ALT 66 U/L (16-63); AST 84 U/L (15-37); Albumin 3.1 g/dL (3.4-5.0); Alkaline Phosphatase 235 U/L (46-116); Anion Gap 4.5 mmol/L (3-11); BUN 11 mg/dL (7-18); Bilirubin, Total 0.9 mg/dL (0.2-1.0); CO2 31.5 mmol/L (21.0-32.0); Calcium 8.8 mg/dL (8.5-10.1); Chloride 105 mmol/L (98-107); Estimated GFR 81.98 (mL/min/1.73m2); Glucose 102 mg/dL (74-106); Potassium 4.1 mmol/L (3.5-5.1); Sodium 141 mmol/L (136-145); Total Protein 6.9 g/dL (6.4-8.2)
[2024-12-30 13:42] LABS: LDH 877 U/L (85-227)
[2024-12-31 08:16] LABS: Lab Add On Test DONE
== END 2024-12-30 04:02 | disposition home or self-care (01) ==
PROVIDERS: PCP Family Medicine; Visit Provider Internal Medicine Medical Oncology
DX: I10 Essential (primary) hypertension (principal); C43.59 Malignant melanoma of other part of trunk; C78.7 Secondary malignant neoplasm of liver and intrahepatic bile duct; C43.9 Malignant melanoma of skin, unspecified
CPT/HCPCS: 36415; 80053; 83615; 85025

== ENCOUNTER 2025-04-15 10:52 | Outpatient (REF) | payer BC, SELFPAY ==
[2025-04-15 15:02] LABS: Glucose Negative (Negative)
== END 2025-04-15 10:53 | disposition home or self-care (01) ==
LOC: LBN 10:52
PROVIDERS: PCP Family Medicine; Visit Provider Family Medicine
DX: R35.0 Frequency of micturition (principal)
CPT/HCPCS: 81003

== ENCOUNTER 2025-05-30 05:09 | Outpatient (CLI) | payer BC, SELFPAY ==
--- NOTE | 2025-05-30 | DI.MRI_ITS ---
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 CONTRAST MATERIAL: IV Contrast: 14 mL of Dotarem contrast administered. COMPARISON: MR MR BRAIN WO from 09/06/2022 FINDINGS: VENTRICLES AND EXTRA AXIAL SPACES: Normal in size and morphology for the patient's age. There is unchanged asymmetry of the lateral ventricles. HEMORRHAGE: None. CEREBRAL PARENCHYMA: No focus of restricted diffusion to suggest acute infarct. No space-occupying lesion identified. There is a stable cyst in the left basal ganglia. MIDLINE SHIFT: None. BRAINSTEM/CEREBELLUM: Normal. CALVARIUM: Normal. ENHANCEMENT: No suspicious enhancement identified. VISUALIZED PARANASAL SINUSES/MASTOIDS: Clear. [place] OF FELIZ: Normal flow void. PITUITARY GLAND: There is again seen an empty sella. OTHER FINDINGS: IMPRESSION: 1. There is no evidence of an acute infarct. 2. No intracranial mass or enhancing lesion is seen to suggest metastatic disease. DATA REPOSITORY:
[2025-05-30] MEDS: Gadoterate meglumine 20 ML VIAL 14 ML IVP (15:11)
[2025-05-30] MEDS: Normal Saline Flush 10 ML SYR IVP (15:13)
== END 2025-05-30 05:29 ==
LOC: DI 05:09
PROVIDERS: PCP Family Medicine; Visit Provider Internal Medicine Medical Oncology
DX: C78.7 Secondary malignant neoplasm of liver and intrahepatic bile duct (principal); R42 Dizziness and giddiness
CPT/HCPCS: 70553

== ENCOUNTER 2025-06-16 03:53 | Outpatient (CLI) | payer BC, SELFPAY ==
[2025-06-16 08:22] LABS: Abs Immature Grans 0.02 10^3/uL (0.0-0.06); HCT 36.8 % (40.0-50.0); HGB 11.3 g/dL (13.5-17.5); Immature Grans % 0.3 %; MCH 23.6 pg (27.0-33.0); MCHC 30.7 % (32.0-36.0); MCV 77 fL (80-95); MPV 8.9 fL (8.0-11.0); Platelet Count 274 10^3/uL (130-400); RBC 4.78 10^6/uL (4.36-5.78); RDW 17.3 % (11.8-14.1); RDW-SD 48.3 fL; WBC 6.69 10^3/uL (4.4-10.8)
[2025-06-16 09:42] LABS: Iron 48 ug/dL (65-175); Total Iron Binding Capacity 388 ug/dL (250-450); Transferrin Sat 12 % (20-55)
[2025-06-16 10:20] LABS: ALT 29 U/L (16-63); AST 70 U/L (15-37); Albumin 2.5 g/dL (3.4-5.0); Alkaline Phosphatase 306 U/L (46-116); Anion Gap 7.8 mmol/L (3-11); BUN 8 mg/dL (7-18); Bilirubin, Total 1.3 mg/dL (0.2-1.0); CO2 31.2 mmol/L (21.0-32.0); Calcium 8.7 mg/dL (8.5-10.1); Chloride 101 mmol/L (98-107); Folate 5.0 ng/mL (8.6-20.0); Glucose 91 mg/dL (74-106); Potassium 4.5 mmol/L (3.5-5.1); Sodium 140 mmol/L (136-145); Total Protein 7.0 g/dL (6.4-8.2); Vitamin B12 812 pg/mL (193-986)
[2025-06-16 10:22] LABS: Ferritin > 2000 ng/mL (26-388)
[2025-06-16 10:40] LABS: LDH 860 U/L (85-227)
[2025-06-17 20:11] LABS: Adrenocorticotropic Hormone, P 29 pg/mL
== END 2025-06-16 03:54 | disposition home or self-care (01) ==
LOC: LBO 03:53
PROVIDERS: PCP Family Medicine; Visit Provider Internal Medicine Medical Oncology
DX: C78.7 Secondary malignant neoplasm of liver and intrahepatic bile duct (principal); R23.8 Other skin changes; R42 Dizziness and giddiness; D64.9 Anemia, unspecified
CPT/HCPCS: 36415; 80053; 82533; 82024; 82607; 82728; 82746; 83540; 83550; 83615; 85025; 85045

== ENCOUNTER 2025-07-28 14:46 | Outpatient (CLI) | payer BC, SELFPAY ==
[2025-07-28 14:49] LABS: Abs Immature Grans 0.05 10^3/uL (0.0-0.06); HCT 37.0 % (40.0-50.0); HGB 11.2 g/dL (13.5-17.5); Immature Grans % 0.5 %; MCH 22.4 pg (27.0-33.0); MCHC 30.3 % (32.0-36.0); MCV 74 fL (80-95); MPV 8.6 fL (8.0-11.0); Platelet Count 354 10^3/uL (130-400); RBC 4.99 10^6/uL (4.36-5.78); RDW 20.7 % (11.8-14.1); RDW-SD 54.4 fL; WBC 10.41 10^3/uL (4.4-10.8)
[2025-07-28 14:56] LABS: Glucose 100 mg/dL (Negative)
[2025-07-28 14:57] LABS: ESR 41 mm/hr (0-20)
[2025-07-28 15:03] LABS: C & S Indicated? No; RBC Negative HPF (0-2); WBC Negative HPF (0-5)
[2025-07-28 16:00] LABS: Anisocytosis 1+; Hypochromasia 1+; Microcytosis 1+; Poikilocytes 1+
[2025-07-28 16:05] LABS: ALT 45 U/L (10-49); AST 125 U/L (<34); Albumin 3.3 g/dL (3.2-5.0); Alkaline Phosphatase 354 U/L (46-116); Anion Gap 9.2 mmol/L (3-11); BUN 15 mg/dL (9-23); Bilirubin, Total 0.5 mg/dL (0.2-1.2); CO2 33.7 mmol/L (20.0-31.0); Calcium 8.9 mg/dL (8.3-10.6); Chloride 97 mmol/L (98-107); Glucose 109 mg/dL (74-106); Potassium 3.8 mmol/L (3.5-5.1); Sodium 140 mmol/L (136-145); Total Protein 6.9 g/dL (5.7-8.2)
[2025-07-28 16:23] LABS: LDH 940 U/L (120-246)
[2025-07-30 11:59] LABS: Adrenocorticotropic Hormone, P 27 pg/mL
== END 2025-07-28 14:47 | disposition home or self-care (01) ==
LOC: LBO 14:46
PROVIDERS: PCP Family Medicine; Visit Provider Family Medicine
DX: C43.59 Malignant melanoma of other part of trunk (principal); I10 Essential (primary) hypertension
CPT/HCPCS: 36415; 80053; 82533; 85652; 81003; 81015; 82024; 83615; 85025

== ENCOUNTER 2025-08-05 10:42 | Day surgery (SDC) | payer BC, SELFPAY ==
[2025-08-05 11:10] VITALS: BP 148/96; PULSE 104; RESP 22; TEMP 36.6; O2SAT 100
--- NOTE | 2025-08-05 11:43 | W.PM.DSUDISC ---
Date of service: 08/05/25 Discharge Plan Disposition Patient Disposition: Home Condition: Poor Discharge Details Reason For Visit: Therapeutic paracentesis Attending Provider: Ivan Roberts Primary Care Provider: Mariella Chandler Home Meds and New Rx's Prescriptions: Continued Mushroom supplemnet PO ferrous sulfate 325 mg (65 mg iron) tablet 325 mg PO DAILY trazodone 50 mg tablet 50 mg PO QHS Qty: 90 3RF tamsulosin 0.4 mg capsule 0.4 mg PO DAILY Qty: 90 4RF ondansetron 8 mg tablet,disintegrating 8 mg PO Q8H PRN (Reason: nausea and vomiting) Qty: 90 4RF Rx Instructions: cancer related nausea furosemide [Lasix] 20 mg tablet 20 mg PO DAILY Qty: 30 5RF Discharge Instructions Instructions: Abdominal Paracentesis (DC) Additional Instructions: Aaron, I really hope you have some relief as you transition home. As we discussed beforehand, there is not really any specific restrictions after paracentesis for palliation of abdominal pain in situations such as yours. Please feel free to eat and drink what ever you have a desire for. Obviously, you will probably be a little bit uncomfortable at the incision site, but you do not need to follow any specific restrictions with regards to activity. You have a few Steri-Strips over the needle site to help reduce any other drainage through your skin. But that may happen. Feel free to apply some Band-Aids over the site if you have any drainage. If the Steri-Strips remain dry, they can be removed in the shower in the next day or 2. As we discussed, the ascites will reaccumulate over time. Certainly, if you develop increasing pain again, or shortness of breath, we could consider another procedure if needed. Please feel free to call us at [phone] at any time if you need anything at all Stand Alone Forms: Portal Information Activity:: Activity as Tolerated Remove Dressings/Wound Care:: 24 hours Shower/Bathe:: 24 hours Diet:: As Tolerated DS: Diagnosis Discharge Diagnosis (1) Ascites, malignant: Status: Acute Asessment and Plan: Follow-up as needed for palliation of abdominal pain
--- NOTE | 2025-08-05 12:28 | W.PROCNOTE ---
Date of service: 08/05/25 Time of Service: 12:28 Procedure Note Date of procedure: 08/05/25 Procedure: Therapeutic paracentesis Surgeon/Proceduralist/Physician: Ivan Roberts Procedure Diagnosis: Symptomatic ascites Procedure Indications: Aaron is a 70-year-old male with metastatic melanoma, and symptomatic ascites Procedure Description: I started by performing a limited ultrasound of the abdomen to identify appropriate site for paracentesis. Next, I selected the right upper quadrant as the ideal site for paracentesis. I then prepped and draped the abdomen. Next, using ultrasound guidance, I anesthetized the skin with 1% lidocaine with epinephrine. I used the ultrasound to guide the needle down to the peritoneal level which was also anesthetized. I then made a small incision in the skin with a 11 blade scalpel. Next, I advanced the 5 Occitan paracentesis needle and catheter through the incision and into the peritoneal cavity under the direct vision of the ultrasound. Aspirated dark brown ascites. Next, I gently advance the catheter and remove the needle. I affixed drainage tubing, and began draining the ascites with the assistance of Vacutainer's. As the flow decreased, I switched over to hand pumping in an effort to maximize drainage. In total, I drained 1850 mL of ascites. I then remove the catheter, and use Steri-Strips to dress the wound.
[2025-08-05 12:33] VITALS: BP 146/92; PULSE 90; RESP 20; TEMP 36.4; O2SAT 100
== END 2025-08-05 12:58 | disposition home or self-care (01) ==
PROVIDERS: PCP Family Medicine; Visit Provider Surgery
PROC: 0W9G3ZZ Drainage of Peritoneal Cavity, Percutaneous Approach (ICD-10-PCS; CPT 49082; principal; 2025-08-05 11:30)
DX: R18.0 Malignant ascites (principal)
CPT/HCPCS: 49083